=== PATIENT | female | born 1965 | race Caucasian/White ===

== ENCOUNTER 2019-09-27 11:41 | Emergency (ER) | payer BC ==
[~2019-09-27] VITALS: Ht 160 cm; Wt 71.7 kg
[2019-09-27 12:39] LABS: ABSOLUTE NEUTROPHILS 5.4 thou/uL (1.4-8.2); BASOPHILS 0.7 % (0.0-2.0); EOSINOPHILS 2.3 % (0.0-3.0); HEMATOCRIT 44.6 % (37.0-47.0); HEMOGLOBIN 14.9 gm/dL (12.0-15.0); LYMPHOCYTES 21.8 % (24.0-44.0); MCH 31.2 pg (26.0-34.0); MCHC 33.4 g/dL (28.0-37.0); MCV 93.2 fL (80.0-100.0); MONOCYTES 5.1 % (1.0-8.0); PLATELET COUNT 310 thou/uL (150-400); POLYS 70.1 % (36.0-66.0); RBC 4.78 mil/uL (4.20-5.00); RDW 13.4 % (10.5-14.5); WBC 7.7 thou/uL (4.0-11.0)
[2019-09-27 12:49] LABS: CALCIUM 10.7 mg/dL (8.5-10.1); CREATININE 0.9 mg/dL (0.6-1.0); POTASSIUM 3.9 mmol/L (3.5-5.1)
[2019-09-27 12:51] LABS: URINE BILIRUBIN NEGATIVE (Negative); URINE BLOOD NEGATIVE (Negative); URINE CLARITY CLEAR; URINE COLOR YELLOW; URINE GLUCOSE-RANDOM* NEGATIVE (Negative); URINE KETONES TRACE (Negative); URINE LEUKOCYTES-REFLEX NEGATIVE (Negative); URINE NITRITE-REFLEX NEGATIVE (Negative); URINE PROTEIN (DIPSTICK) NEGATIVE (Negative); URINE UROBILINOGEN 0.2 E.U./dl (0.2-1.0)
[2019-09-27] MEDS ORDERED: CARBIDOPA-LEVO1 EAC2 PO (13:14)
[2019-09-27] MEDS ORDERED: DRIZALMA SPRINK60 MG PO (13:15)
[2019-09-27] MEDS ORDERED: BUSPIRONE HCL15 MG PO (13:15)
[2019-09-27] MEDS ORDERED: HYDROXYZINE HCL25 M2 PO (13:15)
[2019-09-27] MEDS ORDERED: ATIVAN0.5 M1 PO (14:46)
[2019-09-27 15:04] VITALS: BP 130/69
== END 2019-09-27 15:05 | disposition home or self-care (01) ==
LOC: ER 11:41
PROVIDERS: Nurse Practitioner Family
DX: F41.0 Panic disorder [episodic paroxysmal anxiety] (principal); R06.4 Hyperventilation; G20 Parkinson's disease; F41.9 Anxiety disorder, unspecified; F17.210 Nicotine dependence, cigarettes, uncomplicated; Z88.8 Allergy status to other drugs, medicaments and biological substances